=== PATIENT | male | born 1960 | race Caucasian/White ===

== ENCOUNTER 2020-02-04 14:01 | Emergency (ER) | payer MEDICARE ==
[~2020-02-04] VITALS: Ht 180.3 cm; Wt 70.3 kg
[2020-02-04 14:29] VITALS: Ht 180.3 cm; Wt 70.3 kg
[2020-02-04 14:49] LABS: BASOPHILS 0.2 % (0-2); EOSINOPHILS 3.5 % (0-7); HEMATOCRIT 54.5 % (42.0-54.0); HEMOGLOBIN 18.5 g/dL (13.5-17.5); IMMATURE GRANULOCYTES 0.2 % (0-5); MCH 35.1 pg (26.0-34.0); MCHC 33.9 g/dL (31.0-37.0); MCV 103.4 fL (80.0-100.0); MONOCYTES 11.9 % (2-11); NEUTROPHILS 55.2 % (40-80); PLATELET COUNT 172 10x3/uL (130-400); RBC 5.27 10x6/uL (4.20-6.10); RDW 12.6 % (11.5-14.5); WBC 5.1 10x3/uL (4.8-10.8)
[2020-02-04 15:14] LABS: CALC OSMOLALITY 279 mosm/kg (275-300); CALCIUM 8.9 mg/dL (8.5-10.1); CARBON DIOXIDE 29.2 mmol/L (21.0-32.0); CHLORIDE - SERUM 103 mmol/L (98-107); CREATININE - SERUM 0.9 mg/dL (0.6-1.3); GLUCOSE 87 mg/dL (74-106); SODIUM 142 mmol/L (136-145); UREA NITROGEN 7 mg/dL (7-18); eGFR NON AFRICAN AMERICAN > 90 mL/min (90-120)
[2020-02-04 15:18] LABS: ALKALINE PHOSPHATASE 66 U/L (30-120); ALT (SGPT) 73 U/L (10-68); BILIRUBIN - TOTAL 0.73 mg/dL (0.2-1.3); MAGNESIUM - SERUM 1.7 mg/dL (1.8-2.4); PROTEIN - SERUM 8.6 g/dL (6.4-8.2)
--- NOTE | 2020-02-04 15:30 | NUR ---
DR PANTOJA NOTIFIED AND REVIEWED PT'S BEHAVIOR AND ASSESSMENT. PT IS A HIGH RISK. SITTER ORDERED AND AT BEDSIDE. SAFETY PLAN INITIATED. RESOURCES GIVEN AND HE VERBALIZES UNDERSTANDING.
[2020-02-04 16:16] LABS: BILIRUBIN NEGATIVE (NEGATIVE); GLUCOSE NEGATIVE (NEGATIVE); KETONE NEGATIVE (NEGATIVE); NITRITE NEGATIVE (NEGATIVE); UROBILINOGEN NORMAL (NORMAL)
[2020-02-04 16:17] LABS: RED CELLS - URINE OCC /hpf (0-5); WHITE CELLS - URINE OCC /hpf (NEGATIVE)
[2020-02-04 16:34] LABS: UDS - AMPHET NEGATIVE QUAL (NEGATIVE); UDS - BARB NEGATIVE QUAL (NEGATIVE); UDS - BENZO NEGATIVE QUAL (NEGATIVE); UDS - COCAINE NEGATIVE QUAL (NEGATIVE); UDS - OPIATE POSITIVE QUAL (NEGATIVE); UDS - PCP NEGATIVE QUAL (NEGATIVE); UDS - THC POSITIVE QUAL (NEGATIVE)
[2020-02-04 20:00] VITALS: BP 136/86
[2020-02-04] MEDS ORDERED: ZYPREXA20 MG PO (20:43)
[2020-02-04] MEDS ORDERED: HYDROXYZINE PA100 MG PO (20:44)
== END 2020-02-04 21:32 ==
LOC: D.ER 14:01
PROVIDERS: Family Medicine
DX: R45.851 Suicidal ideations (principal); Z91.14 Patient's other noncompliance with medication regimen

== ENCOUNTER 2020-05-05 10:46 | Emergency (ER) | payer MEDICARE ==
[~2020-05-05] VITALS: Ht 180.3 cm; Wt 65.9 kg
[~2020-05-05 10:46] MED LIST: HYDROXYZINE PA100 MG PO; ZYPREXA20 MG PO
[2020-05-05 10:56] VITALS: BP 136/77; Ht 180.3 cm; Wt 65.9 kg
[2020-05-05] MEDS ORDERED: SEROQUEL100 MG PO (10:57)
[2020-05-05] MEDS ORDERED: NEURONTIN600 MG PO (10:57)
[2020-05-05] MEDS ORDERED: CYCLOBENZAPRINE10 MG PO (11:20)
== END 2020-05-05 12:00 | disposition home or self-care (01) ==
LOC: D.ER 10:46
DX: M54.5 Low back pain (principal); G89.29 Other chronic pain